=== PATIENT | female | born 1970 | race American Indian/Alaskan Native ===

== ENCOUNTER 2019-02-21 01:05 | Emergency (ER) | payer SELFPAY ==
[2019-02-21 03:16] LABS: Calcium 9.1 mg/dL (8.4-10.2)
[2019-02-21] MEDS ORDERED: DILAUDID IV ONE ×3 (03:21→05:25)
[2019-02-21] MEDS ORDERED: VICKS SINEX NS ONE (03:21)
[2019-02-21] MEDS ORDERED: ZOFRAN IV ONE (03:21)
[2019-02-21 03:27] LABS: Basophils # (Auto) 0.1 K/mm3 (0.0-0.1); Basophils % (Auto) 1.3 % (0.0-1.8); Eosinophils # (Auto) 0.2 K/mm3 (0.0-0.4); Eosinophils % (Auto) 3.4 % (0.0-4.3); Hematocrit 30.3 % (30.3-42.9); Lymphocytes # (Auto) 1.9 K/mm3 (1.2-5.4); Lymphocytes % (Auto) 35.1 % (13.4-35.0); Mean Corpuscular HGB Conc 33 % (30-34); Mean Corpuscular Volume 84 fl (79-97); Monocytes # (Auto) 0.5 K/mm3 (0.0-0.8); Monocytes % (Auto) 8.9 % (0.0-7.3); Platelet Count 229 K/mm3 (140-440); Red Blood Count 3.61 M/mm3 (3.65-5.03); Red Cell Distribution Width 14.4 % (13.2-15.2)
[2019-02-21] MEDS ORDERED: WATER FOR INJ Sterile (PF) 10 ML ONE ×3 (03:33→03:47)
[2019-02-21 04:19] LABS: INR 0.98 (0.87-1.13); Partial Thromboplastin Time 28.6 Sec. (24.2-36.6)
--- NOTE | 2019-02-21 04:21 | Emergency Department Report ---
ED ENT HPI - General Chief complaint: Nosebleed Stated complaint: NOSE BLEED Time Seen by Provider: 02/21/19 03:04 Source: patient Mode of arrival: Ambulatory Limitations: No Limitations - History of Present Illness Initial comments: 49-year-old female with a past medical history hypertension and obesity presents to Hospital with right-sided epistaxis on and off since yesterday. She denies taking any blood thinners and any recent injury to her nose. Patient has a history of epistaxis on the right nostril in the past but has resolved spontaneously and not required an ED visit. Pt takes percocet for chronic knee pain. - Related Data Previous Rx's Medication Instructions Recorded Last Taken Type cephALEXin [Keflex] 250 mg PO Q6HR #12 capsule 02/21/19 Unknown Rx Allergies Allergy/AdvReac Type Severity Reaction Status Date / Time lisinopril Allergy Unknown Verified 02/21/19 01:30 ED Dental HPI - General Chief complaint: Nosebleed Stated complaint: NOSE BLEED Time Seen by Provider: 02/21/19 03:04 Source: patient Mode of arrival: Ambulatory Limitations: No Limitations - Related Data Previous Rx's Medication Instructions Recorded Last Taken Type cephALEXin [Keflex] 250 mg PO Q6HR #12 capsule 02/21/19 Unknown Rx Allergies Allergy/AdvReac Type Severity Reaction Status Date / Time lisinopril Allergy Unknown Verified 02/21/19 01:30 ED Review of Systems ROS: Stated complaint: NOSE BLEED Other details as noted in HPI Comment: All other systems reviewed and negative ED Past Medical Hx - Past Medical History Previous Medical History?: Yes Hx Hypertension: Yes Hx Arthritis: Yes Additional medical history: Obesity - Surgical History Past Surgical History?: Yes Additional Surgical History: Right foot, X 2 - Social History Smoking Status: Never Smoker Substance Use Type: None - Medications Home Medications: Home Medications Medication Instructions Recorded Confirmed Last Taken Type cephALEXin [Keflex] 250 mg PO Q6HR #12 capsule 02/21/19 Unknown Rx ED Physical Exam - General Limitations: No Limitations - Other Other exam information: General: No acute distress Eyes: Normal appearance, pupils equal reactive to light, extraocular movements intact ENT: Patient has a clotted blood in the right nostril. Neck: Normal appearance, no C-spine tenderness, no meningismus Chest: Clear to auscultation bilaterally, no wheezes, rales, or crackles Cardiovascular: Regular rate and rhythm Abdomen: Soft, nondistended, nontender, no rebound or guarding, normal bowel sounds Back: Normal inspection, nontender Extremity: Normal inspection, no deformity, full range of motion Neuro: Alert and oriented 3, speech clear, no gross motor or sensory deficit Skin: No rash, once, or erythema ED Course Vital Signs 02/21/19 02/21/19 02/21/19 01:30 03:05 03:25 Temperature 98.3 F 98.3 F Pulse Rate 88 79 74 Respiratory 20 22 21 Rate Blood Pressure 161/107 177/96 Blood Pressure 188/89 [Left] O2 Sat by Pulse 100 100 100 Oximetry 02/21/19 02/21/19 02/21/19 03:31 04:01 04:28 Temperature Pulse Rate 80 94 H 74 Respiratory 14 18 19 Rate Blood Pressure 192/96 156/121 Blood Pressure 197/104 [Left] O2 Sat by Pulse 98 99 99 Oximetry 02/21/19 02/21/19 02/21/19 05:01 05:02 05:34 Temperature Pulse Rate 74 70 68 Respiratory 17 19 Rate Blood Pressure 200/133 200/130 Blood Pressure 190/88 [Left] O2 Sat by Pulse 100 96 Oximetry 02/21/19 02/21/19 02/21/19 05:47 06:01 06:09 Temperature Pulse Rate 68 68 65 Respiratory 13 Rate Blood Pressure 190/88 182/100 174/114 Blood Pressure [Left] O2 Sat by Pulse 94 Oximetry 02/21/19 02/21/19 06:27 06:30 Temperature Pulse Rate 75 75 Respiratory 17 16 Rate Blood Pressure 153/82 Blood Pressure 174/94 [Left] O2 Sat by Pulse 98 97 Oximetry - Procedure Description Procedures done: Epistaxis: Patient blew out clots. Afrin 1 spray placed in right nostril. Rhino Rocket anterior packing placed in the right nostril and inflated with air until hemostasis achieved. Patient received Dilaudid for pain prior and during procedure. ED Medical Decision Making - Lab Data Result diagrams: 02/21/19 02:10 02/21/19 02:10 Lab Results 02/21/19 02/21/19 02/21/19 Range/Units 02:10 02:10 02:25 WBC 5.5 (4.5-11.0) K/mm3 RBC 3.61 L (3.65-5.03) M/mm3 Hgb 10.0 L (10.1-14.3) gm/dl Hct 30.3 (30.3-42.9) % MCV 84 (79-97) fl MCH 28 (28-32) pg MCHC 33 (30-34) % RDW 14.4 (13.2-15.2) % Plt Count 229 (140-440) K/mm3 Lymph % (Auto) 35.1 H (13.4-35.0) % Conway % (Auto) 8.9 H (0.0-7.3) % Eos % (Auto) 3.4 (0.0-4.3) % Baso % (Auto) 1.3 (0.0-1.8) % Lymph # 1.9 (1.2-5.4) K/mm3 Conway # 0.5 (0.0-0.8) K/mm3 Eos # 0.2 (0.0-0.4) K/mm3 Baso # 0.1 (0.0-0.1) K/mm3 Seg Neutrophils % 51.3 (40.0-70.0) % Seg Neutrophils # 2.8 (1.8-7.7) K/mm3 PT 12.7 (12.2-14.9) Sec. INR 0.98 (0.87-1.13) APTT 28.6 (24.2-36.6) Sec. Sodium 140 (137-145) mmol/L Potassium 4.1 (3.6-5.0) mmol/L Chloride 106.0 (98-107) mmol/L Carbon Dioxide 22 (22-30) mmol/L Anion Gap 16 mmol/L BUN 18 H (7-17) mg/dL Creatinine 1.4 H (0.7-1.2) mg/dL Estimated GFR 48 ml/min BUN/Creatinine Ratio 13 % Glucose 111 H (65-100) mg/dL Calcium 9.1 (8.4-10.2) mg/dL - Medical Decision Making Patient has a successful hemostasis with nasal packing. Removed some air from the packing as per patient request given to discomfort. Packing secured with tape and patient be discharged on antibiotics and encouraged to follow with ENT for packing removal. Sensitivity return here if unable to follow up with ENT and to continue her blood pressure medication is prescribed. pt may be d/ed once bp improved (meds given) pt is scheduled to take her am meds soon - Differential Diagnosis coagulopathy, anemia, anterior epistaxis, posterior epistaxis. Critical Care Time: No Critical care attestation.: If time is entered above; I have spent that time in minutes in the direct care of this critically ill patient, excluding procedure time. ED Disposition Clinical Impression: Epistaxis, Uncontrolled hypertension Disposition: TO HOME OR SELFCARE Is pt being admited?: No Does the pt Need Aspirin: No Condition: Stable Instructions: Epistaxis (ED), Hypertension (ED) Additional Instructions: Packing should be removed from the nose in 2- 3 days. You are encouraged to follow-up with the ENT doctor which is a specialist. If you're unable to follow up with the ENT doctor then you may return to the ER for packing removal. It is very important that you take the antibiotic as prescribed while the packing is in place to prevent infection. It is also very important that you make sure that the nasal packing is taped and secured to the face especially while sleeping to prevent movement of the packing backwards down your throat. Prescriptions: cephALEXin [Keflex] 250 mg PO Q6HR #12 capsule Referrals: GERALD MARIO MD [Staff Physician] - 2-3 Days HARLEY PHILLIPS MD [Staff Physician] - 2-3 Days
[2019-02-21] MEDS ORDERED: NORMODYNE IV ONE ×2 (04:52→05:35)
[2019-02-21] MEDS ORDERED: WATER FOR INJ Sterile (PF) IM ONE (05:30)
[2019-02-21] MEDS ORDERED: APRESOLINE IV ONE (06:04)
[2019-02-21 07:10] VITALS: BP 153/82
== END 2019-02-21 06:45 | disposition home or self-care (01) ==
LOC: ED 01:05
DX: R04.0 Epistaxis (principal); I10 Essential (primary) hypertension; M19.90 Unspecified osteoarthritis, unspecified site; Z79.899 Other long term (current) drug therapy; Z88.6 Allergy status to analgesic agent
CPT/HCPCS: 36415; 80048; 85025; 85610; 85730; 96374; 96375; 96376; 99283; J0360; J1170; J2405